=== PATIENT | female | born 1970 | race Caucasian/White ===

== ENCOUNTER 2020-05-22 14:18 | Inpatient (IN) ==
[2020-05-22] MEDS ORDERED: ZOSYN VIAL 3.375 GRAMS 3.375 G in NS 100 ML IV + SPIKE MINIBAG* 100 ML IV SCH (16:21)
[2020-05-22 16:51] LABS: BASOPHILS # (AUTO) 0.1 X10^3/uL (0.0-0.1); BASOPHILS % (AUTO) 0.9 % (0.2-1.0); EOSINOPHILS # (AUTO) 0.2 x10^3/uL (0.0-0.2); EOSINOPHILS % (AUTO) 2.4 % (0.9-2.9); HEMATOCRIT 32.8 % (36.0-47.0); HEMOGLOBIN 10.3 g/dL (12.0-16.0); LYMPHOCYTES # (AUTO) 1.5 X10^3/uL (1.3-2.9); LYMPHOCYTES % (AUTO) 19.1 % (21.0-51.0); MEAN CORPUSCULAR HEMOGLOBIN 25.2 pg (27.0-34.0); MEAN CORPUSCULAR HGB CONC 31.5 g/dL (33.0-35.0); MEAN CORPUSCULAR VOLUME 79.8 fL (80.0-100.0); MEAN PLATELET VOLUME 7.9 fL (7.4-11.0); MONOCYTES # (AUTO) 0.8 x10^3/uL (0.3-0.8); MONOCYTES % (AUTO) 10.6 % (0.0-13.0); NEUTROPHILS # (AUTO) 5.1 x10^3/uL (2.2-4.8); PLATELET COUNT 393 X10^3/uL (150.0-450.0); RED CELL DISTRIBUTION WIDTH 15.1 % (11.6-16.5); WHITE BLOOD COUNT 7.6 X10^3/uL (3.6-10.0)
[2020-05-22 16:57] VITALS: BMI 34.1
[2020-05-22] MEDS: LR 1000 ML IV 1,000 ML IV SCH (17:13)
[2020-05-22] MEDS: MERREM VIAL 1 G in NS 100 ML IV + SPIKE MINIBAG* 100 ML IV SCH ×2 (17:13→21:04)
--- NOTE | 2020-05-22 17:19 | RAD ---
EXAM: CHEST X-RAYHISTORY: Screening CXR. Preoperative evaluation for cardiac, respiratory status. Left foot wound.TECHNIQUE: AP chest x-ray dated May 22, 2020 at 4:47 PM.COMPARISON: None available.FINDINGS:The heart size and mediastinum are within normal limits. The lung love and costophrenic angles are clear. There is no acute parenchymal infiltrate, pleural effusion, or pneumothorax seen. The visualized bony structures are within normal limits.IMPRESSION:1. No evidence for acute cardiopulmonary disease seen.Electronically signed by: Larry Doe (May 22, 2020 17:17:28)
[2020-05-22 18:12] LABS: ALBUMIN 2.5 g/dL (3.4-5.0); CALCIUM 9.1 mg/dL (8.5-10.1); CARBON DIOXIDE 25.3 mmol/L (21-32); COR CA(FOR HYPOALB) 10.3 mg/dL (8.5-10.1); CREATININE 1.54 mg/dL (0.55-1.02); TOTAL PROTEIN 7.5 g/dL (6.4-8.2)
[2020-05-22 19:10] LABS: BILIRUBIN,URINE NEGATIVE (NEGATIVE); BLOOD/HEMOGLOBIN,URINE NEGATIVE (NEGATIVE); GLUCOSE, URINE 4+ (NEGATIVE); KETONES,URINE NEGATIVE (NEGATIVE); LEUKOCYTE ESTERASE ,URINE NEGATIVE (NEGATIVE); NITRITES,URINE NEGATIVE (NEGATIVE); PROTEIN,URINE 3+ (NEGATIVE); UROBILINOGEN,URINE NORMAL (NORMAL)
[2020-05-22 19:20] LABS: APPEARANCE,URINE CLEAR (CLEAR); COLOR,URINE YELLOW (YELLOW)
[2020-05-22 19:21] LABS: BACTERIA,URINE NEGATIVE /HPF (NEGATIVE); RBC,URINE NONE SEEN /HPF (0-3); SQUAMOUS EPITHELIAL CELL,UR MANY /HPF (NEGATIVE); YEAST,URINE MANY /HPF (NEGATIVE)
[2020-05-22] MEDS: CARDIZEM CD 120 MG 24-HR PO SCH (20:09)
[2020-05-22] MEDS: COZAAR PO SCH (20:10)
[2020-05-22] MEDS: REQUIP PO SCH (20:10)
[2020-05-22] MEDS: NEURONTIN TAB 600 MG PO SCH (20:10)
[2020-05-22] MEDS ORDERED: CIPRO IV 200 MG PREMIX* 200 MG/100 ML BAG IV SCH (23:00)
[2020-05-23] MEDS ORDERED: VANCOMYCIN IV *PREMIX 500 mg/100 ML BAG 500 MG/100 ML PIGGYBACK IV SCH
[2020-05-23] MEDS: MERREM VIAL 1 G in NS 100 ML IV + SPIKE MINIBAG* 100 ML IV SCH ×3 (05:16→21:16)
[2020-05-23] MEDS: LR 1000 ML IV 1,000 ML IV SCH ×2 (05:16→18:01)
[2020-05-23] MEDS: VITAMIN D3 125 mcg (5,000 UNITS) PO SCH ×2 (08:11)
[2020-05-23] MEDS: VANCOMYCIN IV *PREMIX 1 G/200 ML BAG 1 G/200 ML PIGGYBACK IV SCH ×2 (09:14→20:57)
[2020-05-23] MEDS ORDERED: LR 1000 ML IV 1,000 ML IV ONE (11:01)
[2020-05-23] MEDS ORDERED: STERILE WATER IRRIGATION IR ONE (12:15)
[2020-05-23] MEDS ORDERED: DIPRIVAN VIAL ONE (12:40)
[2020-05-23] MEDS ORDERED: ZOFRAN INJ 4 MG VIAL ONE (12:40)
[2020-05-23] MEDS ORDERED: EPHEDRINE SULFATE INJ ONE (12:40)
[2020-05-23] MEDS ORDERED: TORADOL 30 MG VIAL ONE (12:40)
[2020-05-23] MEDS ORDERED: XYLOCAINE 2 % (PLAIN) ONE (12:40)
[2020-05-23] MEDS ORDERED: SUPRANE ONE (12:40)
[2020-05-23] MEDS ORDERED: DILAUDID INJ IVP PRN (14:20)
[2020-05-23] MEDS ORDERED: ZOFRAN INJ 4 MG VIAL IVP PRN (14:20)
[2020-05-23] MEDS ORDERED: REGLAN INJ 10 MG VIAL IVP PRN (14:20)
[2020-05-23] MEDS ORDERED: PHENERGAN INJ 25 MG IM PRN (14:20)
[2020-05-23] MEDS ORDERED: BENADRYL INJ 50 MG VIAL IVP PRN (14:20)
[2020-05-23] MEDS: SYNTHROID 137 mcg TAB PO SCH (17:18)
[2020-05-23] MEDS: COZAAR PO SCH (20:58)
[2020-05-23] MEDS: REQUIP PO SCH (20:58)
[2020-05-23] MEDS: CARDIZEM CD 120 MG 24-HR PO SCH (20:58)
[2020-05-23] MEDS: NEURONTIN TAB 600 MG PO SCH (20:58)
[2020-05-24] MEDS: LR 1000 ML IV 1,000 ML IV SCH ×4 (03:06→21:31)
[2020-05-24] MEDS ORDERED: DILAUDID INJ IVP ONE (03:13)
[2020-05-24] MEDS ORDERED: DILAUDID INJ ONE (03:15)
[2020-05-24] MEDS: NORCO 10/325 TAB PO PRN ×2 (04:30→21:44)
[2020-05-24] MEDS: MERREM VIAL 1 G in NS 100 ML IV + SPIKE MINIBAG* 100 ML IV SCH ×3 (05:24→21:44)
[2020-05-24 05:55] LABS: BASOPHILS % (AUTO) 0.8 % (0.2-1.0); EOSINOPHILS # (AUTO) 0.2 x10^3/uL (0.0-0.2); EOSINOPHILS % (AUTO) 3.7 % (0.9-2.9); HEMATOCRIT 29.4 % (36.0-47.0); HEMOGLOBIN 9.6 g/dL (12.0-16.0); LYMPHOCYTES # (AUTO) 1.5 X10^3/uL (1.3-2.9); LYMPHOCYTES % (AUTO) 25.6 % (21.0-51.0); MEAN CORPUSCULAR HEMOGLOBIN 25.7 pg (27.0-34.0); MEAN CORPUSCULAR HGB CONC 32.7 g/dL (33.0-35.0); MEAN CORPUSCULAR VOLUME 78.6 fL (80.0-100.0); MEAN PLATELET VOLUME 7.5 fL (7.4-11.0); MONOCYTES # (AUTO) 0.6 x10^3/uL (0.3-0.8); MONOCYTES % (AUTO) 9.5 % (0.0-13.0); NEUTROPHILS # (AUTO) 3.7 x10^3/uL (2.2-4.8); NEUTROPHILS % (AUTO) 60.4 % (42.0-75.0); PLATELET COUNT 422 X10^3/uL (150.0-450.0); RED BLOOD COUNT 3.74 X10^6/uL (3.5-5.4); RED CELL DISTRIBUTION WIDTH 15.1 % (11.6-16.5)
[2020-05-24 06:10] LABS: ALANINE AMINOTRANSFERASE 15 Units/L (12-78); ALBUMIN 2.2 g/dL (3.4-5.0); ALKALINE PHOSPHATASE 95 Units/L (46-116); ASPARTATE AMINO TRANSFERASE 11 Units/L (15-37); BLOOD UREA NITROGEN 9 mg/dL (7-18); CALCIUM 8.8 mg/dL (8.5-10.1); CARBON DIOXIDE 27.8 mmol/L (21-32); CHLORIDE 106 mmol/L (98-107); COR CA(FOR HYPOALB) 10.2 mg/dL (8.5-10.1); CREATININE 0.98 mg/dL (0.55-1.02); SODIUM 143 mmol/L (136-145); TOTAL PROTEIN 6.6 g/dL (6.4-8.2); eGFR NON BLACK RACES > 60 (>60)
[2020-05-24 08:33] LABS: CREATININE 1.12 mg/dL (0.55-1.02)
[2020-05-24] MEDS ORDERED: NORCO 10/325 TAB PO PRN (09:09)
[2020-05-24] MEDS: VITAMIN D3 125 mcg (5,000 UNITS) PO SCH (09:22)
[2020-05-24] MEDS: VANCOMYCIN IV *PREMIX 1 G/200 ML BAG 1 G/200 ML PIGGYBACK IV SCH ×2 (09:22→21:48)
[2020-05-24] MEDS: PHENERGAN TAB 25 MG PO PRN ×3 (11:42→23:45)
[2020-05-24] MEDS: SYNTHROID 137 mcg TAB PO SCH (17:15)
[2020-05-24] MEDS ORDERED: PHARMACY COMMENT IV ONE (20:30)
[2020-05-24] MEDS: REQUIP PO SCH (21:44)
[2020-05-24] MEDS: COZAAR PO SCH (21:45)
[2020-05-24] MEDS: NEURONTIN TAB 600 MG PO SCH (21:45)
[2020-05-24] MEDS: CARDIZEM CD 120 MG 24-HR PO SCH (21:45)
[2020-05-24 22:56] LABS: CREATININE 1.22 mg/dL (0.55-1.02); VANCOMYCIN,TROUGH 17.5 ug/mL (15-20)
[2020-05-25] MEDS: NORCO 10/325 TAB PO PRN ×2 (04:02→19:59)
[2020-05-25] MEDS: MERREM VIAL 1 G in NS 100 ML IV + SPIKE MINIBAG* 100 ML IV SCH ×3 (05:39→22:26)
[2020-05-25 06:59] LABS: BASOPHILS % (AUTO) 0.8 % (0.2-1.0); EOSINOPHILS # (AUTO) 0.3 x10^3/uL (0.0-0.2); EOSINOPHILS % (AUTO) 6.1 % (0.9-2.9); HEMATOCRIT 30.2 % (36.0-47.0); HEMOGLOBIN 9.8 g/dL (12.0-16.0); LYMPHOCYTES # (AUTO) 1.8 X10^3/uL (1.3-2.9); LYMPHOCYTES % (AUTO) 32.7 % (21.0-51.0); MEAN CORPUSCULAR HEMOGLOBIN 25.8 pg (27.0-34.0); MEAN CORPUSCULAR HGB CONC 32.4 g/dL (33.0-35.0); MEAN CORPUSCULAR VOLUME 79.5 fL (80.0-100.0); MEAN PLATELET VOLUME 7.4 fL (7.4-11.0); MONOCYTES # (AUTO) 0.6 x10^3/uL (0.3-0.8); MONOCYTES % (AUTO) 10.9 % (0.0-13.0); NEUTROPHILS # (AUTO) 2.8 x10^3/uL (2.2-4.8); NEUTROPHILS % (AUTO) 49.5 % (42.0-75.0); PLATELET COUNT 445 X10^3/uL (150.0-450.0); RED CELL DISTRIBUTION WIDTH 15.1 % (11.6-16.5); WHITE BLOOD COUNT 5.6 X10^3/uL (3.6-10.0)
[2020-05-25 07:07] LABS: ALANINE AMINOTRANSFERASE 15 Units/L (12-78); ALBUMIN 2.2 g/dL (3.4-5.0); ALKALINE PHOSPHATASE 102 Units/L (46-116); ASPARTATE AMINO TRANSFERASE 13 Units/L (15-37); BLOOD UREA NITROGEN 8 mg/dL (7-18); CALCIUM 8.9 mg/dL (8.5-10.1); CARBON DIOXIDE 30.8 mmol/L (21-32); CHLORIDE 105 mmol/L (98-107); COR CA(FOR HYPOALB) 10.3 mg/dL (8.5-10.1); CREATININE 1.17 mg/dL (0.55-1.02); SODIUM 142 mmol/L (136-145); TOTAL PROTEIN 6.9 g/dL (6.4-8.2); eGFR NON BLACK RACES 52 (>60)
[2020-05-25] MEDS: VITAMIN D3 125 mcg (5,000 UNITS) PO SCH (09:37)
[2020-05-25] MEDS: VANCOMYCIN IV *PREMIX 1 G/200 ML BAG 1 G/200 ML PIGGYBACK IV SCH ×2 (09:38→20:37)
[2020-05-25] MEDS ORDERED: NS 1/2 1000 ML IV 1,000 ML IV ONE ×2 (10:40→20:54)
[2020-05-25] MEDS: COLACE CAP 100 MG PO SCH ×2 (11:13→20:35)
[2020-05-25] MEDS: NS 1/2 1000 ML IV 1,000 ML IV SCH ×3 (11:14→20:55)
[2020-05-25] MEDS: DIFLUCAN PO SCH (11:14)
--- NOTE | 2020-05-25 11:19 | MD.NOTE ---
Provider Note Note Note: - On 05/22/20, Wound vac order was placed for home delivery.
[2020-05-25] MEDS: SYNTHROID 137 mcg TAB PO SCH (16:32)
[2020-05-25] MEDS: PHENERGAN TAB 25 MG PO PRN (20:05)
[2020-05-25] MEDS: REQUIP PO SCH (20:35)
[2020-05-25] MEDS: CARDIZEM CD 120 MG 24-HR PO SCH (20:36)
[2020-05-25] MEDS: COZAAR PO SCH (20:36)
[2020-05-25] MEDS: NEURONTIN TAB 600 MG PO SCH (20:36)
[2020-05-25] MEDS: MIRALAX POWDER (1 DOSE 17 G) PO SCH (20:37)
[2020-05-26] MEDS: NORCO 10/325 TAB PO PRN ×4 (00:43→22:39)
[2020-05-26] MEDS: PHENERGAN TAB 25 MG PO PRN ×4 (01:20→22:45)
[2020-05-26] MEDS: NS 1/2 1000 ML IV 1,000 ML IV SCH ×3 (02:45→18:28)
[2020-05-26] MEDS: MERREM VIAL 1 G in NS 100 ML IV + SPIKE MINIBAG* 100 ML IV SCH ×3 (05:49→21:09)
[2020-05-26 06:21] LABS: BASOPHILS # (AUTO) 0.1 X10^3/uL (0.0-0.1); EOSINOPHILS # (AUTO) 0.3 x10^3/uL (0.0-0.2); EOSINOPHILS % (AUTO) 5.3 % (0.9-2.9); HEMATOCRIT 30.2 % (36.0-47.0); HEMOGLOBIN 9.7 g/dL (12.0-16.0); LYMPHOCYTES # (AUTO) 1.6 X10^3/uL (1.3-2.9); LYMPHOCYTES % (AUTO) 26.5 % (21.0-51.0); MEAN CORPUSCULAR HEMOGLOBIN 25.4 pg (27.0-34.0); MEAN CORPUSCULAR HGB CONC 32.2 g/dL (33.0-35.0); MEAN CORPUSCULAR VOLUME 78.8 fL (80.0-100.0); MEAN PLATELET VOLUME 7.3 fL (7.4-11.0); MONOCYTES # (AUTO) 0.6 x10^3/uL (0.3-0.8); MONOCYTES % (AUTO) 10.1 % (0.0-13.0); NEUTROPHILS # (AUTO) 3.4 x10^3/uL (2.2-4.8); NEUTROPHILS % (AUTO) 57.1 % (42.0-75.0); PLATELET COUNT 437 X10^3/uL (150.0-450.0); RED BLOOD COUNT 3.83 X10^6/uL (3.5-5.4); RED CELL DISTRIBUTION WIDTH 15.6 % (11.6-16.5); WHITE BLOOD COUNT 5.9 X10^3/uL (3.6-10.0)
[2020-05-26 06:23] LABS: ALANINE AMINOTRANSFERASE 14 Units/L (12-78); ALBUMIN 2.1 g/dL (3.4-5.0); ALKALINE PHOSPHATASE 104 Units/L (46-116); ASPARTATE AMINO TRANSFERASE 11 Units/L (15-37); BLOOD UREA NITROGEN 9 mg/dL (7-18); CARBON DIOXIDE 30.8 mmol/L (21-32); CHLORIDE 105 mmol/L (98-107); COR CA(FOR HYPOALB) 10.5 mg/dL (8.5-10.1); COR NA(FOR HYPERGLY) 141 mmol/L (136-145); CREATININE 1.06 mg/dL (0.55-1.02); SODIUM 140 mmol/L (136-145); TOTAL PROTEIN 6.7 g/dL (6.4-8.2); eGFR NON BLACK RACES 58 (>60)
[2020-05-26] MEDS ORDERED: NS 1/2 1000 ML IV 1,000 ML IV ONE ×2 (08:44→23:30)
[2020-05-26] MEDS: VITAMIN D3 125 mcg (5,000 UNITS) PO SCH (08:50)
[2020-05-26] MEDS: DIFLUCAN PO SCH (08:50)
[2020-05-26] MEDS: COLACE CAP 100 MG PO SCH ×2 (08:52→20:54)
[2020-05-26] MEDS: VANCOMYCIN IV *PREMIX 1 G/200 ML BAG 1 G/200 ML PIGGYBACK IV SCH ×2 (11:30→22:18)
[2020-05-26] MEDS: TORADOL 30 MG VIAL IVP PRN ×2 (12:50→21:05)
[2020-05-26] MEDS: SYNTHROID 137 mcg TAB PO SCH (18:21)
[2020-05-26] MEDS: COZAAR PO SCH (20:52)
[2020-05-26] MEDS: CARDIZEM CD 120 MG 24-HR PO SCH (20:53)
[2020-05-26] MEDS: NEURONTIN TAB 600 MG PO SCH (20:53)
[2020-05-26] MEDS: REQUIP PO SCH (20:54)
[2020-05-26] MEDS: MIRALAX POWDER (1 DOSE 17 G) PO SCH (20:56)
[2020-05-26 21:42] LABS: CREATININE 1.32 mg/dL (0.55-1.02)
[2020-05-26 21:46] LABS: VANCOMYCIN,TROUGH 25.4 ug/mL (15-20)
[2020-05-27] MEDS ORDERED: GLUTOSE 15 GEL ORAL PO PRN (00:17)
[2020-05-27] MEDS ORDERED: GLUTOSE 15 GEL ORAL PO ONE (00:19)
[2020-05-27] MEDS: NS 1/2 1000 ML IV 1,000 ML IV SCH ×4 (00:30→18:29)
[2020-05-27] MEDS: MERREM VIAL 1 G in NS 100 ML IV + SPIKE MINIBAG* 100 ML IV SCH ×3 (05:14→21:55)
[2020-05-27] MEDS: VITAMIN D3 125 mcg (5,000 UNITS) PO SCH (08:22)
[2020-05-27] MEDS: COLACE CAP 100 MG PO SCH ×2 (08:22→20:52)
[2020-05-27] MEDS: PHENERGAN TAB 25 MG PO PRN ×3 (08:23→21:03)
[2020-05-27] MEDS: NORCO 10/325 TAB PO PRN ×3 (08:23→21:03)
[2020-05-27] MEDS: DIFLUCAN PO SCH (08:28)
[2020-05-27] MEDS ORDERED: VANCOMYCIN IV *PREMIX 750 mg/150 ML BAG 750 MG/150 ML PIGGYBACK IV SCH (09:00)
[2020-05-27] MEDS ORDERED: SUPRANE ONE (09:25)
[2020-05-27] MEDS ORDERED: DIPRIVAN VIAL ONE (09:25)
[2020-05-27] MEDS ORDERED: VERSED ONE (09:25)
[2020-05-27] MEDS ORDERED: ZOFRAN INJ 4 MG VIAL ONE (09:25)
[2020-05-27] MEDS ORDERED: NS 1/2 1000 ML IV 1,000 ML IV ONE (09:40)
[2020-05-27] MEDS: TORADOL 30 MG VIAL IVP PRN (12:30)
[2020-05-27] MEDS: SYNTHROID 137 mcg TAB PO SCH (16:54)
[2020-05-27] MEDS: COZAAR PO SCH (20:52)
[2020-05-27] MEDS: CARDIZEM CD 120 MG 24-HR PO SCH (20:52)
[2020-05-27] MEDS: NEURONTIN TAB 600 MG PO SCH (20:52)
[2020-05-27] MEDS: REQUIP PO SCH (20:52)
[2020-05-27] MEDS: MIRALAX POWDER (1 DOSE 17 G) PO SCH (20:53)
[2020-05-28] MEDS: TORADOL 30 MG VIAL IVP PRN ×3 (00:50→19:15)
[2020-05-28] MEDS ORDERED: NS 1/2 1000 ML IV 1,000 ML IV ONE ×2 (02:04→19:10)
[2020-05-28] MEDS: NS 1/2 1000 ML IV 1,000 ML IV SCH ×5 (03:51→19:15)
[2020-05-28] MEDS: MERREM VIAL 1 G in NS 100 ML IV + SPIKE MINIBAG* 100 ML IV SCH ×3 (05:11→21:30)
[2020-05-28] MEDS ORDERED: NS 1000 ML 1,000 ML ONE (08:25)
[2020-05-28] MEDS ORDERED: FENTANYL INJ 100 mcg ONE (09:01)
[2020-05-28] MEDS ORDERED: OFIRMEV IV 1000 MG VIAL 1,000 MG/100 ML VIAL IV ONE (09:02)
[2020-05-28] MEDS ORDERED: TOBRAMYCIN SULFATE ONE (09:14)
[2020-05-28] MEDS ORDERED: VANCOMYCIN HCL ONE (09:14)
[2020-05-28] MEDS ORDERED: MARCAINE 0.25% INJ ONE (09:19)
[2020-05-28] MEDS ORDERED: BENADRYL INJ 50 MG VIAL IVP PRN (10:35)
[2020-05-28] MEDS ORDERED: DILAUDID INJ IVP PRN (10:35)
[2020-05-28] MEDS ORDERED: REGLAN INJ 10 MG VIAL IVP PRN (10:35)
[2020-05-28] MEDS ORDERED: ZOFRAN INJ 4 MG VIAL IVP PRN (10:35)
[2020-05-28] MEDS ORDERED: PHENERGAN INJ 25 MG IM PRN (10:35)
[2020-05-28] MEDS: COLACE CAP 100 MG PO SCH ×2 (11:37→20:26)
[2020-05-28] MEDS: DIFLUCAN PO SCH (12:00)
[2020-05-28] MEDS: VITAMIN D3 125 mcg (5,000 UNITS) PO SCH (12:00)
[2020-05-28] MEDS: NORCO 10/325 TAB PO PRN ×2 (14:20→20:59)
[2020-05-28] MEDS: SYNTHROID 137 mcg TAB PO SCH (17:00)
[2020-05-28] MEDS: COZAAR PO SCH (20:26)
[2020-05-28] MEDS: MIRALAX POWDER (1 DOSE 17 G) PO SCH (20:27)
[2020-05-28] MEDS: REQUIP PO SCH (20:27)
[2020-05-28] MEDS: CARDIZEM CD 120 MG 24-HR PO SCH (20:27)
[2020-05-28] MEDS: NEURONTIN TAB 600 MG PO SCH (20:27)
[2020-05-28] MEDS ORDERED: PHARMACY COMMENT IV ONE (20:30)
[2020-05-29] MEDS: NORCO 10/325 TAB PO PRN ×3 (02:11→17:12)
[2020-05-29] MEDS: NS 1/2 1000 ML IV 1,000 ML IV SCH ×2 (02:49→10:25)
[2020-05-29] MEDS: MERREM VIAL 1 G in NS 100 ML IV + SPIKE MINIBAG* 100 ML IV SCH ×2 (05:30→14:22)
[2020-05-29] MEDS: DIFLUCAN PO SCH (10:24)
[2020-05-29] MEDS: VITAMIN D3 125 mcg (5,000 UNITS) PO SCH (10:24)
[2020-05-29] MEDS: COLACE CAP 100 MG PO SCH (10:24)
[2020-05-29] MEDS: TORADOL 30 MG VIAL IVP PRN (14:22)
[2020-05-29] MEDS: SYNTHROID 137 mcg TAB PO SCH (17:12)
[2020-05-29] MEDS: PHENERGAN TAB 25 MG PO PRN (17:13)
[2020-05-29 17:20] VITALS: BP 138/72
== END 2020-05-29 17:15 | disposition home health service (06) | DRG 478 ==
LOC: MED/SURG
PROVIDERS: ADMIT Obstetrics & Gynecology Obstetrics; ATTEND Obstetrics & Gynecology Obstetrics
PROC: HARDREM (ICD-10-PCS; 2020-05-23 12:55)